=== PATIENT | female | born 1975 | race Caucasian/White ===

== ENCOUNTER 2017-03-10 18:15 | Emergency (ER) | payer OTHER ==
--- NOTE | ~2017-03-10 | CR63 ---
[facility]. [facility] A Service of [facility] RADIOLOGY TEXT RESULTS PATIENT: ANTHONY MURPHY LOCATION: SED : 71 UNIT #: [id number] AGE: [address]: Jose Manuel Miranda MD SEX: F ORDER DR: [id number] [place] [id number] E MR#: [id number] Acc #: [id number] NAME: ANTHONY MURPHY : 1975 SEX: F STUDY DATE/TIME: 03/10/2017 18:49 UNIT: SED ROOM: STUDY DESCRIPTION: CR Chest 2 View Attending Physician: Jose Manuel Miranda M.D. Ordering Physician: Kan Tena MEDICAL IMAGING REPORT This report is preliminary unless electronic signature is present. EXAM Two-view chest HISTORY Feels something around jugular notch, questionable foreign body, states Sudafed tablet lodged in throat. FINDINGS 2 views of the chest demonstrate moderate lung volumes, satisfactory technique. No infiltrates or effusions. Heart, mediastinum, great vessels and bony thorax unremarkable. IMPRESSION No acute disease. No foreign body identified. Dictated by... Naye Elliott M.D. THIS IS AN ELECTRONICALLY VERIFIED REPORT Naye Elliott M.D. at 03/11/2017 1:07 PM SUDHIR/shawn TD: 03/10/2017 22:04 JOB #: [id number] MEDICAL IMAGING REPORT Page 1 of 1
[~2017-03-10 18:15] MED LIST: BACTRIM 400-801 EACH
== END 2017-03-10 20:38 | disposition home or self-care (01) ==
LOC: SED 18:15
DX: T18.128A Food in esophagus causing other injury, initial encounter (principal)
CPT/HCPCS: 71020; 96372; 99283; J1610